=== PATIENT | female | born 1970 | race Caucasian/White ===

== ENCOUNTER 2017-05-10 16:10 | Outpatient (CLI) ==
[2016-05-12 18:20] VITALS: BMI 28.5
[2017-05-10 16:25] LABS: BASOPHILS % (AUTO) 0.9 % (0.0-3.0); EOSINOPHILS # (AUTO) 0.2 K/ul (0.0-0.7); EOSINOPHILS % (AUTO) 4.9 % (0.0-7.0); HEMATOCRIT 30.6 % (37.0-47.0); HEMOGLOBIN 10.3 g/dl (12.0-16.0); IMMATURE GRANULOCYTE % (AUTO) 0.3 % (0.0-5.0); LYMPHOCYTES # (AUTO) 0.7 K/uL (0.60-3.4); LYMPHOCYTES % (AUTO) 19.3 (10.0-50.0); MEAN CORPUSCULAR HEMOGLOBIN 33.1 pg (27.0-31.0); MEAN CORPUSCULAR HGB CONC 33.7 (31.8-35.4); MEAN CORPUSCULAR VOLUME 98.4 fl (81.0-99.0); MONOCYTES # (AUTO) 0.4 K/uL (0.4-2.0); NEUTROPHILS # (AUTO) 2.2 K/ul (2.0-6.9); NEUTROPHILS % (AUTO) 63.6; PLATELET COUNT 153 10^3/uL (140-440); RED BLOOD COUNT 3.11 10^6/ul (4.20-5.40); WHITE BLOOD COUNT 3.47 K/ul (4.6-10.2)
[2017-05-10 16:31] LABS: ALBUMIN 3.1 g/dL (3.4-5.0); ANION GAP 14.8; BILIRUBIN,TOTAL 0.64 mg/dL (0.00-1.20); BUN/CREATININE RATIO 14.1; CALCIUM 9.3 mg/dL (8.2-10.2); CHOL/HDL RATIO 2.4 (4.5-5.5); CREATININE 0.78 mg/dL (0.60-1.30); POTASSIUM 3.8 mmol/L (3.5-5.10); TOTAL PROTEIN 6.2 g/dL (6.4-8.2)
== END 2017-05-10 16:11 | disposition home or self-care (01) ==
LOC: LAB 16:10
PROVIDERS: ATTEND Nurse Practitioner Family
DX: I10 Essential (primary) hypertension (principal); Z72.0 Tobacco use
CPT/HCPCS: 36415; 80053; 80061; 85025

== ENCOUNTER 2017-06-01 14:00 | Outpatient (RCR) ==
[2016-05-12 18:20] VITALS: BMI 28.5
--- NOTE | 2017-05-26 13:54 | RS.OPPTEV2 ---
Date of Note: 05/25/17 Visit #: 1 Date of Evaluation: 05/25/17 Payer Source: Medicaid Treatment Diagnosis: Left knee pain, knee stiffness, s/p Left TKA History of Condition/Mechanism of Injury:: Pt had left TKA on 05/02/17. She was in the hospital overnight. She has not received Home Health or any instruction in exercises at this point. Also has significant pain and arthritis in the right knee. She will probably have a TKA of the right LE in the future. Prior Level of Function.....Patient was independent with: ADL's, Self Care, Work /Vocation, Caregiving, Ambulation/Mobility, Community Integration/Access Functional Limitations: Sleep, Self Care, ADL's, Reaching, Pushing, Pulling, Lifting, Carrying, Sitting, Standing, Bending, Squatting, Ambulation, Community Access/Integration Current Subjective/complaints:: Patient reports significant left knee pain. States pain seems to be worse now than it did soon after surgery. Reports being very sensitive to touch along the knee joint and calf. States she only has gabapentin to take for pain. States her Medical card will not cover pain medication at this time. she is icing the knee consistently at home. She is using a RW in the community. She ambulates without an assistive device inside her home. States her home is small. She is not driving . Reports difficulty sleeping due to pain. She has stairs at home to get to her laundry. is doing laundy at this time. States she has fallen twice in the home since having surgery. She feels she fell due to tripping. Treatment Side (optional): Left Pain Assessment - Pain Description Pain Location: Left knee Pain Description: Tightness, Throbbing, Aching Current Pain Intensity: 5/10 Worst Pain Intensity: 9/10 Functional Outcome Measure LE Functional Scale: 25 (25/80=68.75% impairment) - G Codes & Severity Modifier G Codes & Modifier: NA Source of G Code score: NA Observation - Observation Inspection: Left knee presents with welll-healing incision line along the anterior aspect of the joint. Demonstrates no redness or signs of infection. Girth Measurement Lower: Left LE: sup patella: 45 cm. inf patella: 37 cm. malleoli: 24.5 cm Gait - Gait Pattern Gait Comments: Patient ambulates with RW with decreased stance on the left LE. Demonstrates moderate heelstrike on the left. Exhibits decreased left hip and knee flexion during swing phase. - Left Knee ROM Left Knee Extension: -22 degrees from full extension Left Knee Flexion: 86 (degrees AROM) Knee ROM Limitations: Soft Tissue Tightness, Pain Comments: Patient demonstrates consistent pop in the left hip or SI region with hip and knee flexion. Left hip strength generally 4 to 4+/5. - Right Knee ROM Right Knee Extension: -15 degrees from full extension Right Knee Flexion: 121 (degrees AROM) Knee ROM Limitations: Soft Tissue Tightness - Left Knee Strength Left Knee Extension: 4- Good- Left Knee Flexion: 4 Good Palpation Comments:: Patient is hypersensitive to light touch to the left LE: lower leg, knee, thigh. Sensation - Sensation Left Lower Extremity: Impaired (lateral region of knee joint) - Treatment Modality: Electrical Stim Unattended Parameters/Method Applied: 4 large pads crossed current X 11 mins up to 90 peak volts with Cold pack to knee. Patient Position: Supine - Heat/Cryotherapy Treatment: Cryotherapy (with Estim to knee following evaluation) Interventions - Exercise/Activities/Manual Therapy Exercises/Activities: Patient instructed in AP's, SAQ's, LAQ's, Hip abd/add, quad sets, standing HS curls, heel slides, assisted knee flexion in sitting. Manual Therapy: NA HOME EXERCISE PROGRAM: AP's, SAQ's, LAQ's, Hip abd/add, quad sets, standing HS curls, heel slides, assisted knee flexion in sitting. - Charges Total Direct Minutes: 55 mins Total Treatment Time: 55 mins Procedures billed for this date of service:: YESENIA Zee, Sander, Cp Assessment Assessment: Patient presents 3 weeks s/p left TKA. She exhibits limited knee extension and flexion, along with general weakness of the left knee. Her overall level of function is limited with selfcare, ADL's, ambulation, and driving due to the proximity of surgery and limitations at the knee. She demonstrates great potential to benefit from skilled therapy to appropriately progress exercises and apply modalities as needed to regain functional AROM. Patient Education: Education of diagnosis, Body/Joint mechanics, Home Exercise Program, Home Safety, Activity Modification, Education of Plan of Care Rehab Potential: Good Short Term Goals Goal #1: Pt independent and compliant in HEP. Goal to be met by: 06/08/17 Goal #2: Left knee active extension to -5 degrees. Goal to be met by: 06/01/17 Goal #3: Left knee active flexion to 105 degrees. Goal to be met by: 06/08/17 Goal #4: Left knee to demonstrate good quad control. Goal to be met by: 06/08/17 Alf Goals Goal #1: Pt knows HEP and to continue ex's to maintain functional level at D/C. Goal to be met by: 07/09/17 Goal #2: Score on LE functional scale improved to 50/80. Goal to be met by: 07/09/17 Goal #3: Pt to amb. w/o assist device, community distances w/ min. gt deviation. Goal to be met by: 07/09/17 Goal #4: L knee AROM WFL's to perform all ADL's without difficulty. Goal to be met by: 07/09/17 Plan - Treatment to be Provided Procedures: Therapeutic Exercises, Therapeutic Activity, Gait Training, Manual Therapy, Patient Education Modalities: Electrical Stimulation, Cryotherapy, Hot Packs - Treatment Plan Frequency: 3 X week Duration: 6 weeks ORDER # VISITS AND/OR THROUGH DATE: 07/09/17 - Treatment Code (1) Knee pain Code(s): M25.569 - PAIN IN UNSPECIFIED KNEE Qualifiers: Chronicity: acute Laterality: left Qualified Code(s): M25.562 - Pain in left knee (2) Knee stiffness Qualifiers: Laterality: left Qualified Code(s): M25.662 - Stiffness of left knee, not elsewhere classified (3) Aftercare following joint replacement surgery Code(s): Z47.1 - AFTERCARE FOLLOWING JOINT REPLACEMENT SURGERY Qualifiers: Joint replacement surgery site: knee Laterality: left Qualified Code(s): Z47.1 - Aftercare following joint replacement surgery; Z96.652 - Presence of left artificial knee joint
--- NOTE | 2017-05-29 16:00 | RS.OPPTDN ---
Subjective Date of Note: 05/29/17 Visit #: 2 Date of Evaluation: 05/25/17 Payer Source: Medicaid Treatment Diagnosis: Left knee pain, knee stiffness, s/p Left TKA Current Subjective/complaints:: Patient says she can tell after just one session , her knee is more mobile. She says she is using ice at home, but her calf seems very tight. She says she takes percocet 10 prior to therapy and takes every 6 hours. Pain Assessment - Pain Description Pain Location: Left knee (tenderness medially and numbness laterally) Pain Description: Tightness, Throbbing, Aching Current Pain Intensity: 5/10 - Treatment Modality: Electrical Stim Unattended Parameters/Method Applied: hivolt 4 large pads uncrossed L and R of patella @ 125-130 pk volts x 20 mins after therex Patient Position: Supine - Heat/Cryotherapy Treatment: Cryotherapy Interventions - Exercise/Activities/Manual Therapy Exercises/Activities: Patient received gentle PROM of the L knee including heel cord stretching and gentle hams stretching. Patellar mobs (gentle). She performs QS and heel slides multiple reps, SAQ, AP, pillow squeezes, assisted SLR and hip abd (latter limited reps due to pain). LAQ and ended with assisted ROM again for knee flex/ext. Patient received education of self patellar mobs, scar tissue massage, and use of ice/HEP. Total minutes of Exercise: 33 Manual Therapy: NA HOME EXERCISE PROGRAM: AP's, SAQ's, LAQ's, Hip abd/add, quad sets, standing HS curls, heel slides, assisted knee flexion in sitting. - Objective Findings Observations,measurements,etc.: -9 to 90 degrees actively - Charges Total Direct Minutes: 33 Total Treatment Time: 53 Procedures billed for this date of service:: cp, estim (un), ex2 Assessment: Patient performing all HeP and using ice for pain and swelling. She has already improved with ROM since eval by 13 degrees ext and 4 degrees flexion. Vicki is hypersensitive to the medial aspect of the L knee as well as at incision. Instruction on scar tissue massage to desensitize it and improve tissue extensibility. She amb with RW, but is finding herself not needing to rely on it at home. She will progress well with therex and modalities to improve mobility and pain. Patient Education: Education of diagnosis, Body/Joint mechanics, Home Exercise Program, Home Safety, Activity Modification, Education of Plan of Care Patient demonstrates compliance with HEP?: Yes Short Term Goals Goal #1: Pt independent and compliant in HEP. Goal to be met by: 06/08/17 Progress towards Goal:: Progressing Goal #2: Left knee active extension to -5 degrees. Goal to be met by: 06/01/17 Progress towards Goal:: Progressing Comments:: -9 today actively Goal #3: Left knee active flexion to 105 degrees. Goal to be met by: 06/08/17 Progress towards Goal:: Progressing Comments:: 90 today actively Goal #4: Left knee to demonstrate good quad control. 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 Goal to be met by: 07/09/17 Goal #2: Score on LE functional scale improved to 50/80. Goal to be met by: 07/09/17 Goal #3: Pt to amb. w/o assist device, community distances w/ min. gt deviation. Goal to be met by: 07/09/17 Goal #4: L knee AROM WFL's to perform all ADL's without difficulty. Goal to be met by: 07/09/17 Plan PLAN OF CARE EXPIRES ON:: 07/09/17 ORDER # VISITS AND/OR THROUGH DATE: 07/09/17 PLAN: Progress Exercises
--- NOTE | 2017-05-31 14:41 | RS.CXNS ---
Date of scheduled appointment: 05/31/17 Type: No Show
--- NOTE | 2017-06-01 15:21 | RS.OPPTDN ---
Subjective Date of Note: 06/01/17 Visit #: 3 Date of Evaluation: 05/25/17 Payer Source: Medicaid Treatment Diagnosis: Left knee pain, knee stiffness, s/p Left TKA Current Subjective/complaints:: Patient c/o L leg being restless. She says she has walked more than usual and has been performing HEP routinely. Reports walking around in home independently and feels she can walk in the parking lot without her RW. She says she may bring her crutch next time and see how she does. She has taken ibuprofen 800 mg prior to PT session today. Pain Assessment - Pain Description Pain Location: Left knee (tenderness medially and numbness laterally) Pain Description: Tightness, Throbbing, Aching Current Pain Intensity: 5/10 Other Comments regarding Pain:: Walked around her bed yesterday and had sharp pain to the patella, but is much better now. - Treatment Modality: Electrical Stim Unattended Parameters/Method Applied: hivolt 4 large pads cross current @ 105 pk volts x 15 mins after therex Treatment Area: L knee Patient Position: Supine - Heat/Cryotherapy Treatment: Cryotherapy Interventions - Exercise/Activities/Manual Therapy Exercises/Activities: Patient received gentle PROM of the L knee including heel cord stretching and gentle hams stretching. Patellar mobs (gentle). She performs QS and heel slides multiple reps, SAQ, AP, pillow squeezes, assisted SLR and hip abd (latter limited reps due to pain). LAQ and ended with assisted ROM again for knee flex/ext. Total minutes of Exercise: 26 Manual Therapy: NA HOME EXERCISE PROGRAM: AP's, SAQ's, LAQ's, Hip abd/add, quad sets, standing HS curls, heel slides, assisted knee flexion in sitting. - Charges Total Direct Minutes: 26 Total Treatment Time: 41 Procedures billed for this date of service:: cp, estim (un), ex2 Assessment: Patient demo increased tension in the L LE during PROM and stretching. She is very compliant with HEP and perhaps performing too often as she has spasms to the L quads during many exercises. She is ambulatory around her home without her RW and will work on walking with crutch next session around the department to wean to independent amb in community. Decreased pain to 0/10 upon leaving session today. Patient Education: Education of diagnosis, Body/Joint mechanics, Home Exercise Program, Home Safety, Activity Modification, Education of Plan of Care Patient demonstrates compliance with HEP?: Yes Short Term Goals Goal #1: Pt independent and compliant in HEP. Goal to be met by: 06/08/17 Progress towards Goal:: Progressing Goal #2: Left knee active extension to -5 degrees. Goal to be met by: 06/01/17 Progress towards Goal:: Progressing Goal #3: Left knee active flexion to 105 degrees. Goal to be met by: 06/08/17 Progress towards Goal:: Progressing Goal #4: Left knee to demonstrate good quad control. Goal to be met by: 06/08/17 Progress towards Goal:: Progressing [place] Goals Goal #1: Pt knows HEP and to continue ex's to maintain functional level at D/C. Goal to be met by: 07/09/17 Goal #2: Score on LE functional scale improved to 50/80. Goal to be met by: 07/09/17 Goal #3: Pt to amb. w/o assist device, community distances w/ min. gt deviation. Goal to be met by: 07/09/17 Goal #4: L knee AROM WFL's to perform all ADL's without difficulty. Goal to be met by: 07/09/17 Plan PLAN OF CARE EXPIRES ON:: 07/09/17 ORDER # VISITS AND/OR THROUGH DATE: 07/09/17 PLAN: Progress Exercises
--- NOTE | 2017-06-02 13:53 | RS.CXNS ---
Date of scheduled appointment: 06/02/17 Type: Cancel (Patient calls to cancel appointment due to being sick.)
== END 2017-06-03 ==
PROVIDERS: ATTEND Orthopaedic Surgery
DX: M17.12 Unilateral primary osteoarthritis, left knee (principal); Z96.652 Presence of left artificial knee joint

== ENCOUNTER 2017-09-20 09:55 | Outpatient (RCR) ==
[2016-05-12 18:20] VITALS: BMI 28.5
--- NOTE | 2017-09-20 11:51 | RS.OPPTEV2 ---
Date of Note: 09/20/17 Visit #: 1 Date of Evaluation: 09/20/17 Payer Source: Medicaid Surgery Performed?: Yes (L TKR 05/01/17) Treatment Diagnosis: Left knee pain, knee stiffness, s/p Left TKA History of Condition/Mechanism of Injury:: pt underwent L TKR on 05/01/17, pt came for outpatient PT however was not consistent with coming to appts. pt states she has been trying to do exercise but admits is not consistent. Prior Level of Function.....Patient was independent with: ADL's, Self Care, Work /Vocation, Caregiving, Ambulation/Mobility, Community Integration/Access Functional Limitations: Sleep, Self Care, ADL's, Reaching, Pushing, Pulling, Lifting, Carrying, Sitting, Standing, Bending, Squatting, Ambulation, Community Access/Integration Current Subjective/complaints:: pt states that she has had continued pain in knee since surgery and now is unable to make knee lay flat on the bed. Treatment Side (optional): Left *Precautions: n/a Medical History Medical History: Hypertension, COPD, Arthritis Surgical History: Knee Replacement Smoking Status: Current every day smoker Hx Home Medications: estrodile, clonopin, neurontin Pain Assessment - Pain Description Pain Location: L knee Pain Description: Sharp, Aching Current Pain Intensity: 3/10 Worst Pain Intensity: 5/10 with exercise Functional Outcome Measure LE Functional Scale: 49 (39%) - G Codes & Severity Modifier G Codes & Modifier: n/a Source of G Code score: n/a Observation - Observation Inspection: pt with min non pitting edema L knee Posture: Forward Head, Rounded Shoulders Handedness: Right Gait - Gait Pattern General Gait Pattern Observation: Antalgic Gait Gait Comments: pt amb with antalgic gait pattern with decreased heel strike/toe off gait. pt amb with knee flexed. General Range of Motion: BUE WFL's. RLE WFL's Muscle Strength: BUE 5/5. RLE 5/5 Knee ROM: Right WFL's Knee Muscle Strength: Right WFL's - Left Knee ROM Left Knee Extension: -20 AROM -15 AAROM Left Knee Flexion: 112 Knee ROM Limitations: Soft Tissue Tightness, Muscle Weakness, Pain - Left Knee Strength Left Knee Extension: 3- Fair- Left Knee Flexion: 4- Good- Palpation Palpation Findings: Tenderness, Muscle Guarding Comments:: hamstrings and L knee Sensation - Sensation Right Upper Extremity: Intact/Normal Left Upper Extremity: Intact/Normal Right Lower Extremity: Intact/Normal Left Lower Extremity: Intact/Normal Balance - Sitting Balance Static Sitting Balance: Normal Dynamic Sitting Balance: Normal - Standing Balance Static Standing Balance: Good Dynamic Standing Balance: Good - Heat/Cryotherapy Treatment: Cryotherapy Comments:: L knee Interventions - Exercise/Activities/Manual Therapy Exercises/Activities: pt rode bike x 5 mins, pt performed prone hang Lknee x 1 min, QS with bolster under heel, hamstring stretch, heel cord stretch. Also instructed patient on gait with exaggerated heel strike/toe off gait pattern to improve gait sequencing. Manual Therapy: NA HOME EXERCISE PROGRAM: pt given written HEP QS with bolster under heel, hamstring stretch, heel cord stretch, prone knee hang - Charges Timed Code Treatment Minutes: 45 Total Treatment Time: 60 Procedures billed for this date of service:: eval med Assessment Assessment: pt presents with decreased ROM L knee, increased hamstring tightness , pain L knee and min edema L knee which is affecting patient's sleep, ability to perform normal household duties and amb is limited. Patient Education: Education of diagnosis, Home Exercise Program, Activity Modification, Education of Plan of Care Rehab Potential: Good Problems/Comments: Reinforced to patient the importance of being consistent with HEP. 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 Goal #1: pt with improved L knee strength 4 to 4+/5 independent with HEP Goal to be met by: 10/13/17 Goal #2: Score on LE functional scale improved to >55/80 Goal to be met by: 10/13/17 Goal #3: pt report pain <4/10 with activity Goal to be met by: 10/13/17 Goal #4: L knee ext improved to -5 Goal to be met by: 10/13/17 Plan - Treatment to be Provided Procedures: Therapeutic Exercises, Therapeutic Activity, Gait Training, Manual Therapy, Massage, Patient Education Modalities: Electrical Stimulation, Class IV Laser, Cryotherapy, Hot Packs Other:: pt is interested in trying laser to decrease pain. - Treatment Plan Frequency: 2 X week Duration: 4 weeks ORDER # VISITS AND/OR THROUGH DATE: 10/13/17 - Treatment Code (1) Aftercare following joint replacement surgery Code(s): Z47.1 - AFTERCARE FOLLOWING JOINT REPLACEMENT SURGERY Qualifiers: Joint replacement surgery site: knee Laterality: left Qualified Code(s): Z47.1 - Aftercare following joint replacement surgery; Z96.652 - Presence of left artificial knee joint (2) Knee pain Code(s): M25.569 - PAIN IN UNSPECIFIED KNEE Qualifiers: Chronicity: acute Laterality: left Qualified Code(s): M25.562 - Pain in left knee (3) Knee stiffness Qualifiers: Laterality: left Qualified Code(s): M25.662 - Stiffness of left knee, not elsewhere classified
== END 2017-10-04 ==
PROVIDERS: ATTEND Physician Assistant
DX: M25.562 Pain in left knee (principal)

== ENCOUNTER 2017-09-28 16:46 | Outpatient (CLI) ==
[2016-05-12 18:20] VITALS: BMI 28.5
== END 2017-09-28 16:47 | disposition home or self-care (01) ==
LOC: LAB 16:46
PROVIDERS: ATTEND Nurse Practitioner Family
DX: F41.9 Anxiety disorder, unspecified (principal); F32.9 Major depressive disorder, single episode, unspecified; I10 Essential (primary) hypertension; Z87.898 Personal history of other specified conditions
CPT/HCPCS: 36415; 80053; 80061; 80306; 81001; 84439; 84443; 85025; 87086

== ENCOUNTER 2017-10-10 10:37 | Outpatient (CLI) ==
[2016-05-12 18:20] VITALS: BMI 28.5
--- NOTE | 2017-10-10 11:43 | MRI ---
EXAM: MRI brain without IV contrast. DATE: 10/10/2017. 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 Essential hypertension. TECHNIQUE: Sagittal T1W, axial T2W, axial FLAIR, axial T1W, axial DWI, and coronal T2W GRE sequences of the brain were obtained using 1.5 Colleen magnet. No IV contrast. COMPARISON: CT head 30 December 2014. FINDINGS: The lateral ventricles and third ventricle are upper normal size. Some parietal lobe sulc i are slightly prominent. No midline shift, mass effect or abnormal extra-axial fluid collection is apparent. No acute infarct, hemorrhage or neoplasm is identified. Narrow, confluent rim of T2W/FLAI R hyperintensity is observed in the white matter abutting each lateral ventricle. Small number of 2- 6 mm, T2W/FLAIR bright foci are scattered within the whiteside radiata, centrum semiovale and subcortica l white matter bilaterally. Curvilinear band of T2W/FLAIR hyperintensity in the left parietal lobe, including subcortical white matter of the postcentral gyrus, is suspicious for old infarct. T2W brig ht, FLAIR/T1W dark, 6 mm focus in the left caudate head and 3 mm focus in the right frontal whiteside ra diata are consistent with old infarcts. The pascal - white matter differentiation is normal. The 7th/ 8th cranial nerve complexes, cerebellopontine angles, brainstem, and visible cervical spinal cord are normal. There is no cerebellar tonsillar ectopia. The pituitary gland is normal in size and signal . Corpus callosum is normal in size and configuration. Flow voids are present in the major intracra nial arteries and in the dural venous sinuses. No aneurysm, AVM or dural venous sinus thrombosis is apparent. Distortion at the anterior margin of the globe of each eye suggest prior cataract surgery. No other orbit abnormality is identified. The mastoid air cells are unremarkable. There is no acu te sinusitis. No neck mass or lymphadenopathy is detected. No calvarial neoplasm or acute fracture is evident. IMPRESSIONS: 1. No acute infarct, hemorrhage, mass or hydrocephalus. 2. 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 3. Mild cerebral small vessel disease. 4. Minor cerebral involutional change.
== END 2017-10-10 10:38 | disposition home or self-care (01) ==
LOC: RAD 10:37
PROVIDERS: ATTEND Nurse Practitioner Family
DX: I10 Essential (primary) hypertension (principal)

== ENCOUNTER 2017-11-30 09:00 | Outpatient (CLI) ==
[2016-05-12 18:20] VITALS: BMI 28.5
--- NOTE | 2017-12-01 11:58 | MAMMO ---
EXAM: Bilateral digital screening mammogram (2-D and 3-D) History: Screening Comparison: Bilateral mammogram 01/29/2016 Findings: MLO and CC views of bilateral breasts demonstrate heterogeneously dense breast parenchyma which can obscure small lesions. CAD was reviewed by the radiologist. Tomosynthesis was performed. There are no dominant masses, no suspicious microcalcifications and no architectural distortions Impression: Stable negative mammogram. Recommend followup routine screening mammography in 1 year. BIRADS 1
== END 2017-11-30 09:01 | disposition home or self-care (01) ==
LOC: RAD 09:00
PROVIDERS: ATTEND Nurse Practitioner Family
DX: Z12.31 Encounter for screening mammogram for malignant neoplasm of breast (principal)
CPT/HCPCS: 77067

== ENCOUNTER 2018-02-28 13:37 | Outpatient (CLI) ==
[2016-05-12 18:20] VITALS: BMI 28.5
== END 2018-02-28 13:38 | disposition home or self-care (01) ==
LOC: LAB 13:37
PROVIDERS: ATTEND Nurse Practitioner Family
DX: R53.83 Other fatigue (principal); I10 Essential (primary) hypertension
CPT/HCPCS: 36415; 80053; 80061; 82306; 84439; 84443; 85025

== ENCOUNTER 2018-03-08 13:09 | Outpatient (CLI) ==
[2016-05-12 18:20] VITALS: BMI 28.5
--- NOTE | 2018-03-08 16:51 | US ---
EXAMINATION: Bilateral lower extremity venous Doppler, including venous insufficiency testing. HISTORY: Paresthesia of skin. DATE: 03/08/2018. COMPARISON: None. TECHNIQUE: Multiple sonographic images of the bilateral lower extremity deep and superficial venous systems were obtained, including Doppler analysis with compression, augmentation, and reflux interrog ation. FINDINGS:. The bilateral common femoral, profunda femoral, femoral, and popliteal veins are fully compressible a nd have anechoic lumens, spontaneous flow, and normal augmentation. No real time reflux was demonstr ated in the bilateral common femoral or popliteal veins. The right greater saphenous vein measures up to 6 mm in diameter in the thigh and up to [address] in the calf. No real time reflux was demonstrated in the right greater saphenous vein. The right lesser saphenous vein measures up to 4 mm in diameter. No real time reflux was demonstrate d in the right lesser saphenous vein. The left greater saphenous vein measures up to 6 mm in diameter in the thigh and up to 3 [address] in diamet er in the calf. No real time reflux was demonstrated in the left greater saphenous vein. The left lesser saphenous vein measures up to 2 mm in diameter. No real time reflux was demonstrated in the left lesser saphenous vein. IMPRESSION: 1. No evidence of venous insufficiency in the bilateral greater saphenous or lesser saphenous veins. 2. No evidence of DVT in the bilateral lower extremities.
== END 2018-03-08 13:10 | disposition home or self-care (01) ==
LOC: RAD 13:09
PROVIDERS: ATTEND Nurse Practitioner Family
DX: R20.2 Paresthesia of skin (principal); F17.200 Nicotine dependence, unspecified, uncomplicated